=== PATIENT | male | born 1950 | race Caucasian/White ===

== ENCOUNTER 2018-07-30 08:40 | Day surgery (SDC) | payer OTHER ==
[~2018-07-30] VITALS: Ht 170.2 cm; Wt 72.6 kg
[~2018-07-30 08:40] MED LIST: CENTRUM MEN'S1 EACH PO
[2018-07-30 09:20] LABS: BASOPHILS 0.9 % (0-2); EOSINOPHILS 1.9 % (0-7); HEMATOCRIT 44.9 % (42.0-54.0); HEMOGLOBIN 16.1 g/dL (13.5-17.5); IMMATURE GRANULOCYTES 0.4 % (0-5); MCH 31.1 pg (26.0-34.0); MCHC 35.9 g/dL (31.0-37.0); MCV 86.7 fL (80.0-100.0); MEAN PLATELET VOLUME 10.2 fL (7.4-10.4); MONOCYTES 7.6 % (2-11); NEUTROPHILS 64.2 % (40-80); PLATELET COUNT 175 10x3/uL (130-400); RBC 5.18 10x6/uL (4.20-6.10); RDW 13.5 % (11.5-14.5); WBC 6.8 10x3/uL (4.8-10.8)
[2018-07-30 09:27] LABS: ANION GAP 12.8 mmol/L (8-16); CALCIUM 9.3 mg/dL (8.5-10.1); CARBON DIOXIDE 29.7 mmol/L (21.0-32.0); CREATININE - SERUM 1.1 mg/dL (0.6-1.3); POTASSIUM - SERUM 4.5 mmol/L (3.5-5.1)
[2018-07-30 09:46] VITALS: Ht 170.2 cm; Wt 72.6 kg
[2018-07-30] MEDS ORDERED: HYDROCODON-ACE1 EA10 PO (14:01)
--- NOTE | 2018-07-30 15:06 | NUR ---
1500 NO FAMILY AT BEDSIDE. PT REQUESTS THAT HIS BE CALLED TO NOTIFY HER THAT HIS SURGERY HAS BEEN COMPLETED AND HE IS BACK IN HIS ROOM. SUCCESSFUL IN REACHING MRS. VICTORIA BY PHONE. SHE HAS MADE ARRANGEMENTS TO GET TO THE HOSPITAL.
--- NOTE | 2018-07-30 15:40 | NUR ---
AMBULATED TO BATHROOM. VOIDED WITHOUT DIFFICULTY. BACK TO BED. C/O PAIN -12/22. ICE PACK GIVEN TO PT.
--- NOTE | 2018-07-30 16:07 | NUR ---
PERCOCET 10MG PO ADMINISTERED PER ORDERS FOR C/O PAIN -12/22. FAMILY AT [facility].
--- NOTE | 2018-07-30 16:30 | NUR ---
ABEBE SIMON SERVED TO PT. FAMILY AT BEDSIDE.
--- NOTE | 2018-07-30 16:45 | NUR ---
TOLERATED DIET. IV DC'D WITH CATHETER INTACT.
--- NOTE | 2018-07-30 16:50 | NUR ---
WRITTEN AND VERBAL DC INST GIVEN TO PT ALONG WITH RX. VERBALIZED UNDERSTANDING.
--- NOTE | 2018-07-30 17:05 | NUR ---
DC'D HOME WITH FAMILY AND FRIEND VIA PRIVATE VEHICLE. TAKEN TO VEHICLE VIA WC. STABLE AT TIME OF DC.
--- NOTE | 2018-08-12 09:41 | OP ---
PATIENT NAME: RUDY VICTORIA MEDICAL RECORD: [id number] :52 LOCATION:D.OPS ADMISSION DATE: SURGEON: TOMMY CRUZ MD DATE OF OPERATION: 07/30/2018 PREOPERATIVE DIAGNOSES: 1. Left inguinal hernia. 2. Arthritis. POSTOPERATIVE DIAGNOSES: 1. Left inguinal hernia. 2. Arthritis. PROCEDURE: Left inguinal hernia repair with medium PHS mesh. SURGEON: Tommy Cruz MD REPORT OF PROCEDURE: The patient's left groin was prepped and draped in sterile fashion. An oblique incision was made above the inguinal ligament. Electrocautery was used to dissect through the subcutaneous tissues down to the external oblique fascia. This fascia was opened up to the external ring using electrocautery. The ilioinguinal nerve was found and high ligated. We then elevated the spermatic cord and a [place] was placed around it. The patient had a direct hernia defect which was fat containing. The actual opening was quite small. We were able to reduce the hernia contents and opened up the preperitoneal space of Retzius. The medium PHS mesh was inserted into the hernia defect and fanned out in the preperitoneal space of Retzius. We then sutured this mesh down on all sides using multiple interrupted 0 Vicryls. The mesh appeared to lay in good position and there was no sign of any active bleeding. At this point, the external oblique fascia was closed with running 2-0 Vicryl, Mirian's was closed with interrupted 3-0 Vicryl, and the skin was closed with running subcutaneous 5-0 Monocryl. A 10 mL of 0.25% Marcaine with epinephrine was infused into the surrounding tissues and the wound was dressed appropriately. COMPLICATIONS: None. CONDITION: Stable. ANESTHESIA: General endotracheal and local. BLOOD LOSS: Minimal. TRANSINT:[id number] Voice Confirmation ID: [id number] DOCUMENT ID: [id number] TOMMY CRUZ MD at 0941 CC: TIFFANI BERGER [id number] DICTATION DATE: 07/30/18 1409 STORE MGR: 07/30/18 2324 [facility] 07/30/18 [id number] [place] [address]
== END 2018-07-30 17:05 | disposition home or self-care (01) ==
LOC: D.OPS 08:40 → D.PAN 11:00 → D.OPS 11:00
PROVIDERS: Surgery
DX: K40.90 Unilateral inguinal hernia, without obstruction or gangrene, not specified as recurrent (principal); M19.90 Unspecified osteoarthritis, unspecified site